=== PATIENT | male | born 1980 | race Caucasian/White ===

== ENCOUNTER 2021-07-26 14:55 | Inpatient (IN) | payer MEDICAID ==
[~2021-07-26] VITALS: Ht 177.8 cm; Wt 95.8 kg
[2021-07-26] MEDS ORDERED: SODIUM CHLORIDE 0.9% 1,000 ML IV ONE (15:15)
[2021-07-26 15:37] LABS: COVID AG,FIA SOURCE NASOPHARYNGEAL
[2021-07-26 15:48] LABS: BASOPHILS % (AUTO) 0.7 % (0.0-2.0); EOSINOPHILS % (AUTO) 3.2 % (1.0-6.0); HEMATOCRIT 44.2 % (41-53); LYMPHOCYTES # (AUTO) 1.5 K/uL (1.0-4.8); LYMPHOCYTES % (AUTO) 19.7 % (22.0-44.0); MEAN CORPUSCULAR HEMOGLOBIN 30.1 pg (26.0-34.0); MEAN CORPUSCULAR HGB CONC 33.8 G/dL (31.0-37.0); MEAN CORPUSCULAR VOLUME 89 fL (80-100); MONOCYTES # (AUTO) 0.6 K/uL (0.1-1.0); MONOCYTES % (AUTO) 7.9 % (2.0-9.0); NEUTROPHILS # (AUTO) 5.2 K/uL (1.8-7.7); NEUTROPHILS % (AUTO) 68.5 % (40.0-70.0); PLATELET COUNT (AUTO) 340 K/uL (150-450); RED BLOOD CELL COUNT(AUTO) 4.97 MIL/uL (4.50-5.90)
[2021-07-26 15:59] LABS: PROTHROMBIN TIME 10.3 SEC (9.4-11.6)
[2021-07-26 16:07] LABS: ALANINE AMINOTRANSFERASE 21 U/L (12-78); ALBUMIN 3.1 g/dL (3.4-5.0); ALKALINE PHOSPHATASE 93 U/L (46-116); ANION GAP 11 mmol/L (8-16); ASPARTATE AMINOTRANSFERASE 11 U/L (15-37); BILIRUBIN,TOTAL 0.3 mg/dL (0.1-1.0); CALCIUM, TOTAL 8.5 mg/dL (8.8-10.5); CARBON DIOXIDE 25 mmol/L (22-29); CHLORIDE 99 mmol/L (98-107); CREATINE KINASE, TOTAL ONLY 29 U/L (39-308); CREATININE 0.93 mg/dL (0.60-1.30); GLOMERULAR FILTR. RATE CALC > 60 mL/min (>60); POTASSIUM 3.8 mmol/L (3.5-5.1); SODIUM SERUM 135 mmol/L (136-145); TOTAL PROTEIN, SERUM 6.6 g/dL (6.4-8.2); UREA NITROGEN, BLOOD 10 mg/dL (7-18)
[2021-07-26 16:16] LABS: GLUCOSE,RANDOM 469 mg/dL (70-110)
[2021-07-26] MEDS ORDERED: INSULIN REGULAR, HUMAN 100 UNITS/ML IVP ONE (16:45)
[2021-07-26 16:46] LABS: APPEARANCE,URINE CLEAR (CLEAR); BILIRUBIN,URINE NEGATIVE (NEGATIVE); GLUCOSE, URINE (UA) >=1000 mg/dL (NEGATIVE); KETONES,URINE NEGATIVE (NEGATIVE); LEUKOCYTE ESTERASE ,URINE NEGATIVE (NEGATIVE); NITRATE,URINE NEGATIVE (NEGATIVE); OCCULT BLOOD,URINE NEGATIVE (NEGATIVE); PROTEIN,URINE NEGATIVE (NEGATIVE)
[2021-07-26 16:53] LABS: BACTERIA,URINE None Seen /HPF (None Seen); RBC,URINE None Seen /HPF (0-2); SQUAMOUS EPITHELIAL CELL,UR Few /LPF (None Seen); WBC,URINE None Seen /HPF (0-5)
[2021-07-26 16:57] LABS: AMPHET/METH SCREEN,URINE NEGATIVE (NEGATIVE); BARBITURATE SCREEN, URINE NEGATIVE (NEGATIVE); BENZODIAZEPINES SCREEN,URINE NEGATIVE (NEGATIVE); CANNABINOID SCREEN,URINE NEGATIVE (NEGATIVE); COCAINE SCREEN,URINE NEGATIVE (NEGATIVE); METHADONE SCREEN, URINE NEGATIVE (NEGATIVE); OPIATE SCREEN,URINE NEGATIVE (NEGATIVE)
[2021-07-26 16:59] LABS: PHENCYCLIDINE SCREEN,URINE NEGATIVE (NEGATIVE)
[2021-07-26] MEDS ORDERED: ONDANSETRON HCL 4 MG/2 ML VIAL IVP PRN ×2 (17:15→20:45)
[2021-07-26] MEDS ORDERED: GADOTERATE MEGLUMINE 10 MMOL/20 ML VIAL IVP ONE (17:16)
[2021-07-26 17:40] LABS: GLUCOMETER DEV NAME(LOC) ERT.5; GLUCOSE,POINT OF CARE 503 MG/DL (70-110)
[2021-07-26] MEDS ORDERED: MORPHINE SULFATE 2 MG/ML SYRINGE IVP PRN (20:45)
[2021-07-26] MEDS ORDERED: ZOLPIDEM TARTRATE 5 MG TABLET PO PRN (20:45)
[2021-07-26] MEDS ORDERED: BISACODYL 10 MG RECTAL RECTAL SUPPOSITORY PR PRN (20:45)
[2021-07-26] MEDS ORDERED: MAGNESIUM HYDROXIDE SUSPENSION 30 ML UDCUP PO PRN (20:45)
[2021-07-26] MEDS ORDERED: ACETAMINOPHEN 325 MG TABLET PO PRN (20:45)
[2021-07-26] MEDS ORDERED: HYDROCODONE/ACETAMINOPHEN 5-325 MG TABLET PO PRN (20:45)
[2021-07-26] MEDS ORDERED: ASPIRIN 81 MG CHEWABLE TABLET PO ONE (20:45)
[2021-07-26] MEDS ORDERED: DEXTROSE 50%-WATER 25 GM/50 ML SYRINGE IVP PRN (21:00)
[2021-07-26] MEDS ORDERED: HydrALAZINE HCL 20 MG/ML VIAL IVP PRN (21:00)
[2021-07-26] MEDS: ATORVASTATIN CALCIUM 20 MG TABLET PO SCH (21:16)
[2021-07-26] MEDS: DOCUSATE SODIUM 100 MG CAPSULE PO SCH (21:16)
[2021-07-26] MEDS: INSULIN LISPRO 100 UNITS/ML SQ PRN (21:17)
[2021-07-26 21:18] VITALS: BP 168/98
[2021-07-26 23:15] VITALS: BP 167/99
[2021-07-27] MEDS: HydrALAZINE HCL 20 MG/ML VIAL IVP PRN ×4 (00:34→21:01)
[2021-07-27 01:03] LABS: GLUCOMETER DEV NAME(LOC) 5S.2B; GLUCOSE,POINT OF CARE 232 MG/DL (70-110)
[2021-07-27 04:14] VITALS: BP 159/97
[2021-07-27] MEDS: INSULIN LISPRO 100 UNITS/ML SQ PRN ×4 (05:57→21:19)
[2021-07-27 06:28] LABS: BASOPHILS % (AUTO) 0.9 % (0.0-2.0); EOSINOPHILS % (AUTO) 3.4 % (1.0-6.0); HEMATOCRIT 44.7 % (41-53); HEMOGLOBIN 15.1 g/dL (13.5-17.5); LYMPHOCYTES # (AUTO) 2.1 K/uL (1.0-4.8); LYMPHOCYTES % (AUTO) 24.3 % (22.0-44.0); MEAN CORPUSCULAR HEMOGLOBIN 29.5 pg (26.0-34.0); MEAN CORPUSCULAR HGB CONC 33.9 G/dL (31.0-37.0); MEAN CORPUSCULAR VOLUME 87 fL (80-100); MONOCYTES # (AUTO) 0.7 K/uL (0.1-1.0); MONOCYTES % (AUTO) 8.5 % (2.0-9.0); NEUTROPHILS # (AUTO) 5.5 K/uL (1.8-7.7); NEUTROPHILS % (AUTO) 62.9 % (40.0-70.0); PLATELET COUNT (AUTO) 337 K/uL (150-450); RED BLOOD CELL COUNT(AUTO) 5.12 MIL/uL (4.50-5.90); RED CELL DISTRIBUTION WIDTH 13.9 % (11.5-14.5)
[2021-07-27 06:38] LABS: GLUCOMETER DEV NAME(LOC) 5S.1; GLUCOSE,POINT OF CARE 257 MG/DL (70-110)
[2021-07-27 06:56] LABS: HEMOGLOBIN A1C 10.3 % (3.8-5.6)
[2021-07-27 07:00] LABS: ANION GAP 7 mmol/L (8-16); CALCIUM, TOTAL 8.5 mg/dL (8.8-10.5); CARBON DIOXIDE 26 mmol/L (22-29); CHLORIDE 102 mmol/L (98-107); CHOL/HDL RATIO 4.9 (4.2-7.3); CHOLESTEROL 176 mg/dL (131-200); CREATININE 0.71 mg/dL (0.60-1.30); GLOMERULAR FILTR. RATE CALC > 60 mL/min (>60); GLUCOSE,RANDOM 247 mg/dL (70-110); HDL CHOLESTEROL 36 mg/dL (40-60); LDL CHOL (CALC.) 113 mg/dL (0-130); POTASSIUM 3.5 mmol/L (3.5-5.1); SODIUM SERUM 135 mmol/L (136-145); THYROID STIMULATING HORMONE 1.42 uIU/mL (0.36-3.74); TRIGLYCERIDES 133 mg/dL (15-150); UREA NITROGEN, BLOOD 11 mg/dL (7-18)
[2021-07-27 07:58] VITALS: BP 159/99
[2021-07-27] MEDS: PANTOPRAZOLE SODIUM 40 MG DR TABLET PO SCH (09:12)
[2021-07-27] MEDS: DOCUSATE SODIUM 100 MG CAPSULE PO SCH ×2 (09:12→20:59)
[2021-07-27 10:55] VITALS: BP 164/100
[2021-07-27 13:52] LABS: GLUCOMETER DEV NAME(LOC) 5S.2B; GLUCOSE,POINT OF CARE 193 MG/DL (70-110)
[2021-07-27 15:36] VITALS: BP 165/99
[2021-07-27] MEDS: MetFORMIN HCL 850 MG TABLET PO SCH (17:39)
[2021-07-27 20:02] VITALS: BP 166/92
[2021-07-27] MEDS: ATORVASTATIN CALCIUM 20 MG TABLET PO SCH (20:59)
[2021-07-27 22:06] LABS: GLUCOMETER DEV NAME(LOC) 5S.1; GLUCOSE,POINT OF CARE 228 MG/DL (70-110)
[2021-07-27 23:50] VITALS: BP 157/98
[2021-07-28] VITALS (7 sets, daily range): BP systolic 126–159; BP diastolic 65–107
[2021-07-28 05:59] LABS: GLUCOMETER DEV NAME(LOC) 5S.2B; GLUCOSE,POINT OF CARE 196 MG/DL (70-110)
[2021-07-28] MEDS: HydrALAZINE HCL 20 MG/ML VIAL IVP PRN ×3 (06:06→16:33)
[2021-07-28] MEDS: INSULIN LISPRO 100 UNITS/ML SQ PRN ×4 (06:10→20:51)
[2021-07-28] MEDS: MetFORMIN HCL 850 MG TABLET PO SCH ×2 (08:12→17:36)
[2021-07-28] MEDS: ASPIRIN 81 MG CHEWABLE TABLET PO SCH (08:12)
[2021-07-28] MEDS: PANTOPRAZOLE SODIUM 40 MG DR TABLET PO SCH (08:12)
[2021-07-28] MEDS: DOCUSATE SODIUM 100 MG CAPSULE PO SCH ×2 (08:13→20:51)
[2021-07-28] MEDS ORDERED: AmLODIPine BESYLATE 5 MG TABLET PO SCH (09:00)
[2021-07-28 20:37] LABS: GLUCOMETER DEV NAME(LOC) 5N.1C; GLUCOSE,POINT OF CARE 268 MG/DL (70-110)
[2021-07-28] MEDS: ATORVASTATIN CALCIUM 20 MG TABLET PO SCH (20:51)
[2021-07-29 00:02] VITALS: BP 156/75
[2021-07-29 04:06] VITALS: BP 154/95
[2021-07-29] MEDS: HydrALAZINE HCL 20 MG/ML VIAL IVP PRN (05:37)
[2021-07-29] MEDS: INSULIN LISPRO 100 UNITS/ML SQ PRN ×3 (05:51→20:57)
[2021-07-29 05:55] LABS: GLUCOMETER DEV NAME(LOC) 5S.2B; GLUCOSE,POINT OF CARE 201 MG/DL (70-110)
[2021-07-29 05:55] LABS: GLUCOMETER DEV NAME(LOC) 5S.2B; GLUCOSE,POINT OF CARE 178 MG/DL (70-110)
[2021-07-29 05:55] LABS: GLUCOMETER DEV NAME(LOC) 5S.2B; GLUCOSE,POINT OF CARE 172 MG/DL (70-110)
[2021-07-29] MEDS: ASPIRIN 81 MG CHEWABLE TABLET PO SCH (08:33)
[2021-07-29] MEDS: PANTOPRAZOLE SODIUM 40 MG DR TABLET PO SCH (08:34)
[2021-07-29] MEDS: AmLODIPine BESYLATE 5 MG TABLET PO SCH (08:34)
[2021-07-29] MEDS: DOCUSATE SODIUM 100 MG CAPSULE PO SCH ×2 (08:34→20:56)
[2021-07-29] MEDS: MetFORMIN HCL 850 MG TABLET PO SCH ×2 (08:36→17:41)
[2021-07-29 08:41] VITALS: BP 154/81
[2021-07-29 12:00] VITALS: BP 155/96
[2021-07-29 19:43] VITALS: BP 152/80
[2021-07-29 20:00] VITALS: BP 152/80
[2021-07-29 20:47] LABS: GLUCOMETER DEV NAME(LOC) 5N.3; GLUCOSE,POINT OF CARE 215 MG/DL (70-110)
[2021-07-29] MEDS: ATORVASTATIN CALCIUM 20 MG TABLET PO SCH (20:56)
[2021-07-29 22:37] LABS: GLUCOMETER DEV NAME(LOC) 5S.1; GLUCOSE,POINT OF CARE 179 MG/DL (70-110)
[2021-07-29 22:38] LABS: GLUCOMETER DEV NAME(LOC) 5S.1; GLUCOSE,POINT OF CARE 131 MG/DL (70-110)
[2021-07-29 22:38] LABS: GLUCOMETER DEV NAME(LOC) 5S.1; GLUCOSE,POINT OF CARE 194 MG/DL (70-110)
[2021-07-30 00:08] VITALS: BP 127/68
[2021-07-30 04:50] VITALS: BP 157/93
[2021-07-30 06:23] LABS: GLUCOMETER DEV NAME(LOC) 5N.3; GLUCOSE,POINT OF CARE 196 MG/DL (70-110)
[2021-07-30] MEDS: INSULIN LISPRO 100 UNITS/ML SQ PRN ×3 (06:23→17:26)
[2021-07-30 07:31] VITALS: BP 126/91
[2021-07-30] MEDS: MetFORMIN HCL 850 MG TABLET PO SCH ×2 (07:52→15:44)
[2021-07-30] MEDS: ASPIRIN 81 MG CHEWABLE TABLET PO SCH (08:04)
[2021-07-30] MEDS: AmLODIPine BESYLATE 5 MG TABLET PO SCH (08:04)
[2021-07-30] MEDS: DOCUSATE SODIUM 100 MG CAPSULE PO SCH (08:04)
[2021-07-30] MEDS: PANTOPRAZOLE SODIUM 40 MG DR TABLET PO SCH (08:04)
[2021-07-30 11:16] VITALS: BP 141/89
[2021-07-30] MEDS ORDERED: METF-961 PO (12:49)
[2021-07-30] MEDS ORDERED: ATOR20TA86 PO (12:49)
[2021-07-30] MEDS ORDERED: ASPI-1450 PO (12:49)
[2021-07-30 15:12] VITALS: BP 148/84
[2021-07-30 15:40] LABS: GLUCOMETER DEV NAME(LOC) 5S.1; GLUCOSE,POINT OF CARE 227 MG/DL (70-110)
[2021-07-31 07:57] LABS: GLUCOMETER DEV NAME(LOC) 5S.2B; GLUCOSE,POINT OF CARE 213 MG/DL (70-110)
== END 2021-07-30 18:45 | disposition home health service (06) | DRG 45 ==
LOC: EMS 15:06 → 5S 19:14
PROVIDERS: ADMIT Internal Medicine; ATTEND Internal Medicine
DX: I63.9 Cerebral infarction, unspecified (principal); R47.01 Aphasia; E11.65 Type 2 diabetes mellitus with hyperglycemia; I16.1 Hypertensive emergency; E66.3 Overweight; Z68.30 Body mass index [BMI] 30.0-30.9, adult; R29.810 Facial weakness; G83.21 Monoplegia of upper limb affecting right dominant side; F17.210 Nicotine dependence, cigarettes, uncomplicated; E78.5 Hyperlipidemia, unspecified; Z20.822 Contact with and (suspected) exposure to COVID-19; I10 Essential (primary) hypertension; Z79.4 Long term (current) use of insulin; Z79.82 Long term (current) use of aspirin; Z79.899 Other long term (current) drug therapy
CPT/HCPCS: 70450; 70544; 70553; 71045; 80048; 80053; 80061; 81001; 82550; 82962; 83036; 84443; 85025; 85610; 92507; 92610; 93005; 93306; 93880; 99291; G0378; G0480; J0360; J1815; J7030; Q9967; 36415-L1; 36415-TC